=== PATIENT | female | born 1950 ===

== ENCOUNTER 2025-10-21 00:51 | Outpatient (CLI) | payer MEDICARE, SELFPAY ==
[2025-10-21 12:32] LABS: Abs Immature Grans 0.06 10^3/uL (0.0-0.06); HCT 39.2 % (36.0-46.0); HGB 12.5 g/dL (11.2-15.7); Immature Grans % 0.6 %; MCH 28.9 pg (27.0-33.0); MCHC 31.9 % (32.0-36.0); MCV 91 fL (80-95); MPV 8.7 fL (8.0-11.0); Platelet Count 274 10^3/uL (130-400); RBC 4.32 10^6/uL (3.93-5.22); RDW 14.1 % (11.7-14.6); RDW-SD 47.3 fL; WBC 9.62 10^3/uL (4.4-10.8)
[2025-10-21 12:52] LABS: LDH 464 U/L (120-246)
[2025-10-21 12:53] LABS: ALT 28 U/L (10-49); AST 42 U/L (<34); Albumin 4.7 g/dL (3.2-5.0); Alkaline Phosphatase 73 U/L (46-116); Anion Gap 11.7 mmol/L (3-11); BUN 30 mg/dL (9-23); Bilirubin, Total 0.4 mg/dL (0.2-1.2); CO2 24.3 mmol/L (20.0-31.0); Calcium 11.3 mg/dL (8.3-10.6); Chloride 104 mmol/L (98-107); Glucose 194 mg/dL (74-106); Potassium 4.4 mmol/L (3.5-5.1); Sodium 140 mmol/L (136-145); Total Protein 7.8 g/dL (5.7-8.2)
== END 2025-10-21 00:52 | disposition home or self-care (01) ==
LOC: LBO 00:51
PROVIDERS: Visit Provider Student in an Organized Health Care Education/Training Program
DX: C83.37 Diffuse large B-cell lymphoma, spleen (principal)
CPT/HCPCS: 36415; 80053; 83615; 85025

== ENCOUNTER 2025-10-28 00:32 | Outpatient (CLI) | payer MEDICARE, SELFPAY ==
[2025-10-28 07:22] LABS: Abs Immature Grans 0.05 10^3/uL (0.0-0.06); HCT 37.6 % (36.0-46.0); HGB 11.8 g/dL (11.2-15.7); Immature Grans % 0.8 %; MCH 28.5 pg (27.0-33.0); MCHC 31.4 % (32.0-36.0); MCV 91 fL (80-95); MPV 8.5 fL (8.0-11.0); Platelet Count 266 10^3/uL (130-400); RBC 4.14 10^6/uL (3.93-5.22); RDW 14.3 % (11.7-14.6); RDW-SD 47.4 fL; WBC 6.54 10^3/uL (4.4-10.8)
[2025-10-28 07:59] LABS: LDH 484 U/L (120-246)
[2025-10-28 08:00] LABS: ALT 27 U/L (10-49); AST 41 U/L (<34); Albumin 4.3 g/dL (3.2-5.0); Alkaline Phosphatase 58 U/L (46-116); Anion Gap 8.8 mmol/L (3-11); BUN 32 mg/dL (9-23); Bilirubin, Total 0.4 mg/dL (0.2-1.2); CO2 26.2 mmol/L (20.0-31.0); Calcium 9.4 mg/dL (8.3-10.6); Chloride 107 mmol/L (98-107); Glucose 90 mg/dL (74-106); Potassium 4.1 mmol/L (3.5-5.1); Sodium 142 mmol/L (136-145); Total Protein 6.8 g/dL (5.7-8.2)
== END 2025-10-28 00:33 | disposition home or self-care (01) ==
LOC: LBO 00:32
PROVIDERS: Visit Provider Internal Medicine Hematology & Oncology
DX: C83.37 Diffuse large B-cell lymphoma, spleen (principal)
CPT/HCPCS: 36415; 80053; 82784; 83615; 85025